=== PATIENT | male | born 1965 | race Caucasian/White ===

== ENCOUNTER → 2016-12-07 | Outpatient (CLI) | payer BC ==
[~2016-12-07] VITALS: Ht 182.9 cm; Wt 145.0 kg
[~2016-12-07] MED LIST: ASPI325T6 PO; ASPIRIN 81M81 MG/TA2 PO; GLUCOPHAGE500 MG/TAB PO; GLYNASE PRES-TAB6 MG PO; LIPITOR 80MG80 MG PO; LOPRESSOR 225 MG/TAB PO; MEVACOR10 MG PO; NITROSTAT0.4 MG/TAB SL; PLAVIX 75MG TAB75 MG PO; ZESTRIL 10MG10 MG PO; ZYLOPRIM 300MG300 MG PO
[2016-12-07 07:43] VITALS: BP 150/84; PULSE 72
== END ==
LOC: COL.CARD 07:18
DX: I25.10 Atherosclerotic heart disease of native coronary artery without angina pectoris (principal); I25.2 Old myocardial infarction
CPT/HCPCS: A9502

== ENCOUNTER 2023-07-13 03:13 | Inpatient (IN) | payer OTHER ==
[2023-07-13] VITALS (701 sets, daily range): BP systolic 107–186; BP diastolic 62–99; PULSE 61–97; TEMP 97.8–98.7; O2SAT 87–100
[~2023-07-13] VITALS: Ht 182.9 cm; Wt 132.6 kg
[2023-07-13] MEDS ORDERED: LOPRESSOR 550 MG/TAB PO (03:35)
[2023-07-13] MEDS ORDERED: IMDUR 60MG60 MG/TAB PO (03:35)
[2023-07-13] MEDS ORDERED: PRINIVIL20 MG PO (03:35)
[2023-07-13] MEDS ORDERED: INSULIN GL100 UNIT/2 SQ (03:37)
[2023-07-13] MEDS ORDERED: GLUCOPHAGE500 MG/TAB PO ×2 (03:38)
[2023-07-13 08:19] LABS: BASO % 0.4 % (0.0-2.0); EOS # 0.2 K/mm3 (0.0-0.7); EOS % 2.2 % (0.0-4.0); GRAN # 4.4 K/mm3 (1.4-6.5); GRAN % 65.3 % (42.2-75.2); HEMATOCRIT 41.8 % (42.0-52.0); HEMOGLOBIN 13.5 g/dl (13.5-18.0); LYMPH # 1.7 K/mm3 (1.2-3.4); LYMPH % 24.5 % (20.0-51.0); MEAN CELL VOLUME 89 fl (80.0-100.0); MEAN CORPUSCULAR HEMOGLOBIN 29 pg (27-31); MEAN CORPUSCULAR HGB CONC 32 g/dl (33.0-37.0); MEAN PLATELET VOLUME 9.6 fl (7.4-10.4); MONO # 0.5 K/mm3 (0.1-0.6); MONO % 7.3 % (1.7-9.3); PLATELET COUNT 192 K/mm3 (130-400); RED BLOOD COUNT 4.68 M/mm3 (4.20-5.60); REDCELL DISTRIBUTION WIDTH-CV 14.1 % (11.5-14.5)
[2023-07-13 08:29] LABS: ALBUMIN 3.7 gm/dL (3.5-5.0); BILIRUBIN,TOTAL 0.8 mg/dL (0.2-1.2); CALCIUM 9.1 mg/dL (8.4-10.2); CHOLESTEROL RISK RATIO 3.1; CREATININE, serum 0.77 mg/dL (0.72-1.25); MAGNESIUM 1.7 mg/dL (1.6-2.6); POTASSIUM 4.1 mmol/L (3.5-4.5); TOTAL PROTEIN 6.5 gm/dL (6.2-8.1)
[2023-07-13 08:50] LABS: TROPONIN-I 0.68 ng/mL (0.00-0.033)
--- NOTE | 2023-07-13 11:12 | NUR ---
SEE PRINTED MERGE CASE REPORT FOR PROCEDURE DOCUMENTATION INCLUDING VITAL SIGNS, PROCEDURE LOG, AND MEDICATIONS GIVEN.
--- NOTE | 2023-07-13 11:57 | NUR ---
0715 NURSE TO NURSE REPORT OBTAINED FROM [facility] AT [facility], PT CURRENTLY IN ROUTE. 0730 PT ARRIVED TO ICU UNIT VIA EMS ON STRETHER. PT ALERT AND ORIENTED X4. PT ABLE TO TRANSFER FROM STRETCHER TO ICU BED WITH SBA. PT DENIES CHEST PAIN OR OVER ALL PAIN. BELONGINGS INCLUDE WALLET, SHIRT, PANTS AND SHOES. 0800 ARRIVED TO UNIT. WALLET TAKEN HOME BY 0900 DR. CHEN AT BEDSIDE. CONSENT SIGNED FOR LEFT HEART CATH. 1057 PT LEFT ICU WITH AIRCRAFT ENGINE INSTALLER TEAM FOR PROCEDURE.
--- NOTE | 2023-07-13 12:13 | NUR ---
CONSULTED WITH PHARMACIST ON ROUNDS FOR HEPARIN DRIP RATE. PHARAMACIST PLACED ORDERS FOR 1000U\HR. RECHECK HEPXA IN 6 HOURS AT 1400. WILL FOLLOW PROTOCOL ON RECHECK.
--- NOTE | 2023-07-13 14:54 | NUR ---
SW reviewed pt's clinical record and noted he was admitted to ICU today for chest pain. SW met with and his , Twila @ the bedside after rounds this morning. Pt is oriented to person, time and place. He reports he is ambulatory without assistive devices and denies a h/o falls @ home. 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 Pt reports his , Twila is his HCPOA, and his primary care provider is Dr. Chaim Sevilla. Pt fills his prescriptions at the [facility] where he resides. Pt plans to return home after his hospitalization. He does not anticipate a need for outpt services once he is discharge home. Will continue to follow.
--- NOTE | 2023-07-13 19:00 | NUR ---
1245 PT BACK FROM MEDICAL TRANSCRIPTION RADIOLOGY. STENT WAS PLACED, ACCESS FROM RIGHT FEMORAL ARTERY. ANGIOMAX HANGING. ORDERS TO DC WHEN BAG IS FINISHED. RIGHT FEMORAL SITE WITH GAUZE DRESSING COVERED WITH TEGADERM. DRESSING CDI. NO SIGH OF BLEEDING, NO HEMATOMA NOTED. PULSES INTACT. PT EDUCATED ON 4 HOUR FLAT TIME.
--- NOTE | 2023-07-13 20:02 | NUR ---
Received report from day shift nurse, Chelsea. Looked at pt's right groin site at bedside, site is clean dry and intact, no hematoma present. Pt denies pain at this time. Pt's vitals are stable at this time. Pt is resting in bed with call light within reach. Pt on 1/2 NS for fluids.
[2023-07-14] VITALS (299 sets, daily range): BP systolic 123–136; BP diastolic 76–80; PULSE 64–75; TEMP 97.4–98.3; O2SAT 86–99
[2023-07-14 05:46] LABS: BASO % 0.5 % (0.0-2.0); EOS # 0.2 K/mm3 (0.0-0.7); EOS % 2.2 % (0.0-4.0); GRAN # 6.2 K/mm3 (1.4-6.5); GRAN % 73.7 % (42.2-75.2); HEMATOCRIT 43.6 % (42.0-52.0); HEMOGLOBIN 13.8 g/dl (13.5-18.0); LYMPH # 1.3 K/mm3 (1.2-3.4); LYMPH % 15.3 % (20.0-51.0); MEAN CELL VOLUME 92 fl (80.0-100.0); MEAN CORPUSCULAR HEMOGLOBIN 29 pg (27-31); MEAN CORPUSCULAR HGB CONC 32 g/dl (33.0-37.0); MEAN PLATELET VOLUME 9.8 fl (7.4-10.4); MONO # 0.7 K/mm3 (0.1-0.6); MONO % 8.1 % (1.7-9.3); PLATELET COUNT 215 K/mm3 (130-400); RED BLOOD COUNT 4.74 M/mm3 (4.20-5.60)
[2023-07-14 06:02] LABS: CALCIUM 9.2 mg/dL (8.4-10.2); CREATININE, serum 0.83 mg/dL (0.72-1.25)
--- NOTE | 2023-07-14 06:30 | NUR ---
Pt has an uneventful night. Pt's vitals have been stable throughout the night. Pt denies CP. Pt has some SOB, but pt states that a little SOB is normal for him since he got intubated a while back. Pt had good urine output. Pt's right femoral site is clean, dry, and intact, pulses present, and no hematoma present. Will give report to day shift nurse. Pt is resting in bed with call light within reach.
--- NOTE | 2023-07-14 08:27 | NUR ---
PATIENT RESTING COMFORTABLY IN BED WITH SISTER BEDSIDE. VSS, ON ROOM AIR, ALERT AND ORIENTED X4. RIGHT FEMORAL SITE FROM HEART CATH AND STENT PLACEMENT IS SOFT, DOES HAVE BRUISING AROUND SITE.
[2023-07-14] MEDS ORDERED: EFFIENT10 MG PO (09:28)
--- NOTE | 2023-07-14 09:35 | NUR ---
Initial visit; Patient just experienced having a "Procedure" with Dr. Collins. Patient states he is doing well. Wrecking Supervisor offered a prayer of 'Thanksgiving' for a successful procedure and rapid and thorough recovery. Patient thanked Wrecking Supervisor for visit.
--- NOTE | 2023-07-14 11:09 | NUR ---
DISCHARGE INSTRUCTIONS REVIEWED WITH PATIENT REGARDING MEDICATIONS/ EDUCATION/ HEALTH SUMMARY. REMOVED BOTH IVS, COVERED WITH BANDAIDS. PERSONAL BELONGINGS GATHERED AND WITH PATIENT. WHEELED TO ER VIA WHEELCHAIR TO PERSONAL VECHICLE. INSTRUCTED TO CALL 911 FOR BLEEDING, AND CALL THE ICU FLOOR FOR QUESTIONS CONCERNING CARE. ALL QUESTIONS ANSWERED AT THIS TIME. DISCHARGED AT 1032 AM.
== END 2023-07-14 10:32 | disposition home or self-care (01) | DRG 247 ==
LOC: IMCU 03:13 → ICU 08:08
PROVIDERS: Nurse Practitioner Family; ADMIT Internal Medicine
PROC: 4A023N7 Measurement of Cardiac Sampling and Pressure, Left Heart, Percutaneous Approach (ICD-10-PCS; principal; 2023-07-13)
PROC: 027134Z Dilation of Coronary Artery, Two Arteries with Drug-eluting Intraluminal Device, Percutaneous Approach (ICD-10-PCS; 2023-07-13)
PROC: 067 Lower Veins, Dilation (ICD-10-PCS; 2023-07-13)
PROC: B2131ZZ Fluoroscopy of Multiple Coronary Artery Bypass Grafts using Low Osmolar Contrast (ICD-10-PCS; 2023-07-13)
DX: I21.4 Non-ST elevation (NSTEMI) myocardial infarction (principal); I50.30 Unspecified diastolic (congestive) heart failure; I25.10 Atherosclerotic heart disease of native coronary artery without angina pectoris; Z95.5 Presence of coronary angioplasty implant and graft; Z95.1 Presence of aortocoronary bypass graft; I11.0 Hypertensive heart disease with heart failure; E78.5 Hyperlipidemia, unspecified; E11.9 Type 2 diabetes mellitus without complications; Z79.84 Long term (current) use of oral hypoglycemic drugs; E66.01 Morbid (severe) obesity due to excess calories; Z68.32 Body mass index [BMI] 32.0-32.9, adult
CPT/HCPCS: C9604; J0583; J1644; J1815; J2250; J2305; J3010; J7030; Q9967